=== PATIENT | female | born 1980 | race Caucasian/White ===

== ENCOUNTER 2021-08-28 13:35 | Outpatient (CLI) | payer SELFPAY | END 2021-08-28 13:36 | disposition home or self-care (01) | LOC: CSHRAD 13:35 | PROVIDERS: ATTEND Psychiatry & Neurology Neurology | DX: M54.50 Low back pain, unspecified (principal); M43.16 Spondylolisthesis, lumbar region; M47.816 Spondylosis without myelopathy or radiculopathy, lumbar region | CPT/HCPCS: 72100 ==

== ENCOUNTER 2022-04-26 17:55 | Emergency (ER) | payer OTHER, SELFPAY ==
[~2022-04-26 17:55] MED LIST: Iopamidol 370 76% 100 ML VIAL ONE
[2022-04-26] MEDS ORDERED: Morphine 4 MG/ML VIAL ONE (20:08)
[2022-04-26] MEDS ORDERED: Ketorolac Tromethamine 30 MG/ML VIAL ONE (20:09)
[2022-04-26 20:21] LABS: Hemoglobin 14.3 g/dL (12.0-15.5); Mean Corpuscular Hemoglobin 30.7 pg (27.0-33.0); Mean Corpuscular Volume 90.3 fl (81.6-98.3); Mean Platelet Volume 9.8 fl (7.4-10.4); Platelet Count 313 10x3/uL (150-450); RBC Distribution Width 13.8 % (11.5-14.5); Red Blood Cell (RBC) Count 4.66 10x6/uL (3.90-5.03); White Blood Cell (WBC) Count 12.9 10x3/uL (3.5-10.5)
[2022-04-26] MEDS ORDERED: Ondansetron PF 4 MG/2 ML Vial ONE (20:21)
[2022-04-26 20:33] LABS: ALT (SGPT) 54 U/L (8-55); AST (SGOT) 38 U/L (5-34); Alkaline Phosphatase 104 U/L (40-110); Anion Gap 14 mmol/L (10-20); BUN (Urea Nitrogen) 15 mg/dL (7.0-18.7); Bilirubin, Total 0.7 mg/dL (0.2-1.2); Calc. Creatinine Clearance 0 mL/min (70-130); Calcium 10.3 mg/dL (7.8-10.44); Carbon Dioxide 30 mmol/L (22-29); Chloride 97 mmol/L (98-107); Estimated GFR 99; Globulin 3.5 g/dL (2.4-3.5); Glucose 114 mg/dL (70-105); Protein, Total 7.5 g/dL (6.0-8.3); Sodium 138 mmol/L (136-145)
[2022-04-26 20:36] LABS: MDiff Complete? YES
[2022-04-26 20:42] LABS: Band 1 % (5-11); Eosinophils 2 % (0-10); Lymphocytes 18 % (21-51); Monocytes 4 % (0-10); Neutrophil 75 % (42-75)
[2022-04-26 20:43] LABS: Platelet Morphology Comment Appears Adequate
== END 2022-04-26 23:30 | disposition home or self-care (01) ==
LOC: CSHERS 17:55
DX: N63.20 Unspecified lump in the left breast, unspecified quadrant (principal); I10 Essential (primary) hypertension; F17.200 Nicotine dependence, unspecified, uncomplicated
CPT/HCPCS: 71275; 80053; 85025; 96374; 96375; J1885; J2270; J2405; Q9967

== ENCOUNTER 2022-08-13 09:40 | Emergency (ER) | payer OTHER ==
[2022-08-13 10:12] LABS: #Basophils 0.1 10x3/uL (0.0-0.2); #Eosinphils 0.4 10x3/uL (0.0-0.5); #Monocytes 1.1 10x3/uL (0.0-1.1); #Neutrophils 8.4 10x3/uL (1.5-8.4); %Basophils 0.6 % (0.0-2.0); %Eosinophils 3.1 % (0.0-6.0); %Lymphocytes 28.4 % (18.0-47.0); %Monocytes 7.6 % (0.0-10.0); %Neutrophils 59.9 % (40.0-75.0); Hemoglobin 14.7 g/dL (12.0-15.5); Mean Corpuscular HGB CONC 33.7 g/dL (32.0-36.0); Mean Corpuscular Hemoglobin 31.3 pg (27.0-33.0); Mean Corpuscular Volume 92.8 fl (81.6-98.3); Mean Platelet Volume 10.2 fl (7.4-10.4); Platelet Count 324 10x3/uL (150-450); RBC Distribution Width 13.7 % (11.5-14.5)
[2022-08-13] MEDS ORDERED: Aspirin Chewable 81 MG TAB ONE (10:15)
[2022-08-13] MEDS ORDERED: Morphine 4 MG/ML VIAL ONE ×2 (10:16→11:44)
[2022-08-13 10:21] LABS: ALT (SGPT) 67 U/L (8-55); AST (SGOT) 65 U/L (5-34); Albumin 4.2 g/dL (3.5-5.0); Alkaline Phosphatase 114 U/L (40-110); Anion Gap 15 mmol/L (10-20); BUN (Urea Nitrogen) 13 mg/dL (7.0-18.7); Calc. Creatinine Clearance 0 mL/min (70-130); Calcium 9.6 mg/dL (7.8-10.44); Carbon Dioxide 22 mmol/L (22-29); Chloride 104 mmol/L (98-107); Estimated GFR 97; Globulin 3.2 g/dL (2.4-3.5); Glucose 142 mg/dL (70-105); Lipase 37 U/L (8-78); Potassium 4.1 mmol/L (3.5-5.1); Protein, Total 7.4 g/dL (6.0-8.3); Sodium 137 mmol/L (136-145)
[2022-08-13] MEDS ORDERED: Ondansetron PF 4 MG/2 ML Vial ONE (10:25)
[2022-08-13] MEDS ORDERED: Mag-Al Plus 1200 MG/1200 MG/120 MG/30 ML UDCUP ONE (11:43)
[2022-08-13] MEDS ORDERED: Lidocaine Viscous Sol 2% 15 ml UD Cup ONE (11:43)
== END 2022-08-13 12:47 | disposition home or self-care (01) ==
LOC: CSHERS 09:40
DX: R07.9 Chest pain, unspecified (principal); I10 Essential (primary) hypertension; F17.210 Nicotine dependence, cigarettes, uncomplicated
CPT/HCPCS: 36415; 71045; 71275; 80053; 83690; 83880; 84484; 85025; 85379; 93005; 94760; 96374; 96375; 96376; J2270; J2405; Q9967